=== PATIENT | male | born 1950 | race Caucasian/White ===

== ENCOUNTER 2019-06-18 11:55 | Emergency (ER) | payer OTHER ==
[~2019-06-18] VITALS: Ht 175.3 cm; Wt 65.8 kg
[2019-06-18 12:22] VITALS: BP_SYST 136
[2019-06-18 13:22] LABS: CALCIUM 8.3 mg/dL (8.4-11.0); CREATININE 0.86 mg/dL (0.55-1.30); POTASSIUM 3.1 mmol/L (3.5-5.1)
[2019-06-18 13:27] LABS: ALBUMIN 3.3 g/dL (3.4-4.8); TOTAL BILIRUBIN 0.6 mg/dL (0.0-1.0)
[2019-06-18 13:58] VITALS: BP_SYST 136
== END 2019-06-18 13:58 | disposition home or self-care (01) ==
LOC: SED 13:00
DX: R60.0 Localized edema (principal); I11.0 Hypertensive heart disease with heart failure; I50.9 Heart failure, unspecified; E11.9 Type 2 diabetes mellitus without complications; K64.9 Unspecified hemorrhoids
CPT/HCPCS: 36415; 80053; 81002; 83880; 93971; 99284; 99285

== ENCOUNTER 2020-09-08 12:55 | Inpatient (IN) | payer OTHER, SELFPAY ==
[~2020-09-08] VITALS: Ht 175.3 cm; Wt 65.9 kg
[2020-09-08 13:04] VITALS: BP_SYST 121
[2020-09-08 13:42] LABS: BASOPHILS % (AUTO) 0.4 % (0.0-2.0); EOSINOPHILS # (AUTO) 0.1 K/uL (0.0-0.4); EOSINOPHILS % (AUTO) 1.5 % (0.0-4.0); HEMATOCRIT 32.1 % (36-54); HEMOGLOBIN 10.8 g/dL (14.0-18.0); LYMPHOCYTES # (AUTO) 2.1 K/uL (1.0-5.5); LYMPHOCYTES % (AUTO) 25.3 % (20.5-51.5); MEAN CORPUSCULAR HEMOGLOBIN 32 pg (27-31); MEAN CORPUSCULAR HGB CONC 34 % (32-36); MEAN CORPUSCULAR VOLUME 94 fL (79.0-98.0); MONOCYTES # (AUTO) 0.6 K/uL (0.0-1.0); MONOCYTES % (AUTO) 7.1 % (1.7-9.3); NEUTROPHILS # (AUTO) 5.5 K/uL (1.8-7.7); NEUTROPHILS % (AUTO) 65.7 % (40.0-70.0); PLATELET COUNT (AUTO) 107 K/uL (130-430); RED BLOOD CELL COUNT(AUTO) 3.42 MIL/uL (4.2-6.2); RED CELL DISTRIBUTION WIDTH 13.1 % (9.0-15.0); WHITE BLOOD COUNT (AUTO) 8.4 K/uL (4.8-10.8)
[2020-09-08 13:57] LABS: ANION GAP 6 (5-15); CHLORIDE 105 mmol/L (98-107); CREATININE 2.24 mg/dL (0.55-1.30); GLUCOSE 217 mg/dL (70-99); SODIUM SERUM 135 mmol/L (136-145); UREA NITROGEN, BLOOD 38 mg/dL (8-21)
[2020-09-08 14:02] LABS: POTASSIUM 7.7 mmol/L (3.5-5.1)
[2020-09-08 14:13] LABS: ALANINE AMINOTRANSFERASE 14 U/L (12-78); ALBUMIN 3.2 g/dL (3.4-4.8); ASPARTATE AMINOTRANSFERASE 13 U/L (10-37); LIPASE 192 U/L (73-393); THYROID STIMULATING HORMONE 0.76 uIu/mL (0.36-3.74); TOTAL BILIRUBIN 0.3 mg/dL (0.0-1.0)
[2020-09-08] MEDS ORDERED: NACL 0.9% 1,000 ML IV ONE (14:15)
[2020-09-08] MEDS ORDERED: INSULIN REGULAR, HUMAN 10 UNITS/0.1 ML INJ IVP ONE (14:15)
[2020-09-08] MEDS ORDERED: DEXTROSE 50% JECT 50 ML DISP.SYRIN IVP ONE (14:15)
[2020-09-08 14:50] LABS: ANION GAP 6 (5-15); CALCIUM 9.4 mg/dL (8.4-11.0); CHLORIDE 108 mmol/L (98-107); SODIUM SERUM 138 mmol/L (136-145); UREA NITROGEN, BLOOD 39 mg/dL (8-21)
[2020-09-08] MEDS ORDERED: SODIUM POLYSTYRENE SULFONATE 15 GM/60 ML UDBTL PO ONE (15:00)
[2020-09-08 15:04] LABS: GLUCOSE 184 mg/dL (70-99); POTASSIUM 6.3 mmol/L (3.5-5.1)
[2020-09-08 16:40] LABS: BILIRUBIN,URINE NEGATIVE (NEGATIVE); BLOOD, URINE NEGATIVE (NEGATIVE); CLARITY/URINE CLEAR (CLEAR); COLOR,URINE YELLOW (YELLOW); GLUCOSE,URINE NEGATIVE (NEGATIVE); KETONES,URINE NEGATIVE (NEGATIVE); LEUKOCYTE ESTERASE ,URINE NEGATIVE (NEGATIVE); NITRITE, URINE NEGATIVE (NEGATIVE); PROTEIN URINE NEGATIVE (NEGATIVE); UROBILINOGEN,URINE 0.2 (0.2-1.0)
[2020-09-08 17:24] VITALS: BP_SYST 116
[2020-09-08 18:36] LABS: ANION GAP 5 (5-15); CALCIUM 9.1 mg/dL (8.4-11.0); CHLORIDE 110 mmol/L (98-107); CREATININE 1.97 mg/dL (0.55-1.30); GLUCOSE 74 mg/dL (70-99); POTASSIUM 5.6 mmol/L (3.5-5.1); SODIUM SERUM 140 mmol/L (136-145); UREA NITROGEN, BLOOD 37 mg/dL (8-21)
[2020-09-08] MEDS ORDERED: SODIUM POLYSTYRENE SULFONATE 15 GM/60 ML UDBTL GT ONE (19:00)
[2020-09-08] MEDS ORDERED: METF1000 PO (19:47)
[2020-09-08] MEDS ORDERED: OMEP20CA15 PO (19:47)
[2020-09-08] MEDS ORDERED: GLIM4TAB PO (19:47)
[2020-09-08] MEDS ORDERED: MAGN400T10 PO (19:47)
[2020-09-08] MEDS ORDERED: FINA5TAB3 PO (19:47)
[2020-09-08] MEDS ORDERED: DONE10TA44 PO (19:47)
[2020-09-08] MEDS ORDERED: INSU100I24 SQ (19:47)
[2020-09-08] MEDS ORDERED: SPIR100T5 PO (19:47)
[2020-09-08] MEDS ORDERED: LISI20TA30 PO (19:47)
[2020-09-08] MEDS ORDERED: MEMA5TAB PO (19:47)
[2020-09-08] MEDS ORDERED: FURO-150 PO (19:47)
[2020-09-08] MEDS ORDERED: CYAN100T44 PO (19:47)
[2020-09-08] MEDS ORDERED: AMLO5TAB92 PO (19:47)
[2020-09-08] MEDS ORDERED: CARV25TA55 PO (19:47)
[2020-09-08] MEDS ORDERED: LIP10 PO (19:47)
[2020-09-08] MEDS ORDERED: TAMS-11 PO (19:47)
[2020-09-08 20:00] VITALS: BP_SYST 119
[2020-09-08] MEDS ORDERED: CARVEDILOL 3.125 MG TABLET (COREG) ONE (20:04)
[2020-09-09 00:10] VITALS: BP_SYST 111
[2020-09-09 08:00] VITALS: BP_SYST 147
[2020-09-09] MEDS ORDERED: D5W 1,000 ML IV PRN (09:00)
[2020-09-09] MEDS ORDERED: GLUCOSE (DEXTROSE) ORAL GEL -Adults PO PRN (09:00)
[2020-09-09] MEDS ORDERED: DEXTROSE 50% JECT 50 ML DISP.SYRIN IVP PRN (09:00)
[2020-09-09] MEDS: FINASTERIDE 5 MG TABLET (PROSCAR) PO SCH (09:17)
[2020-09-09] MEDS: TAMSULOSIN HCL 0.4 MG CAP PO SCH (09:17)
[2020-09-09] MEDS: ATORVASTATIN 10 MG TABLET PO SCH (09:17)
[2020-09-09] MEDS: CARVEDILOL 25 MG TABLET (COREG) PO SCH ×2 (09:17→20:04)
[2020-09-09] MEDS: NACL 0.9% 1,000 ML IV SCH ×2 (09:17→21:05)
[2020-09-09] MEDS: MEMANTINE HCL 5 MG TABLET PO SCH ×2 (09:18→21:04)
[2020-09-09] MEDS: amLODIPine BESYLATE 5 MG TABLET PO SCH (09:18)
[2020-09-09] MEDS: INSULIN REGULAR, HUMAN 100 UNITS/ML, 10 ML VIAL (humuLIN R) SUBCUT PRN ×3 (11:27→20:08)
[2020-09-09 11:37] LABS: ANION GAP 5 (5-15); CHLORIDE 109 mmol/L (98-107); CREATININE 1.81 mg/dL (0.55-1.30); GLUCOSE 194 mg/dL (70-99); POTASSIUM 5.9 mmol/L (3.5-5.1); SODIUM SERUM 139 mmol/L (136-145); UREA NITROGEN, BLOOD 30 mg/dL (8-21)
[2020-09-09 12:03] VITALS: BP_SYST 107
[2020-09-09] MEDS ORDERED: SODIUM POLYSTYRENE SULFONATE 15 GM/60 ML UDBTL PO ONE (13:45)
[2020-09-09 16:06] VITALS: BP_SYST 106
[2020-09-09 20:00] VITALS: BP_SYST 119
[2020-09-09] MEDS: DONEPEZIL HCL 5 MG TABLET (ARICEPT) PO SCH (20:04)
[2020-09-09] MEDS: FAMOTIDINE 20 MG TABLET PO SCH (20:04)
[2020-09-10 00:42] VITALS: BP_SYST 104
[2020-09-10 06:07] LABS: BASOPHILS % (AUTO) 0.4 % (0.0-2.0); EOSINOPHILS # (AUTO) 0.1 K/uL (0.0-0.4); EOSINOPHILS % (AUTO) 1.7 % (0.0-4.0); HEMOGLOBIN 11.1 g/dL (14.0-18.0); LYMPHOCYTES # (AUTO) 2.1 K/uL (1.0-5.5); LYMPHOCYTES % (AUTO) 30.8 % (20.5-51.5); MEAN CORPUSCULAR HEMOGLOBIN 32 pg (27-31); MEAN CORPUSCULAR HGB CONC 34 % (32-36); MEAN CORPUSCULAR VOLUME 94 fL (79.0-98.0); MONOCYTES # (AUTO) 0.7 K/uL (0.0-1.0); MONOCYTES % (AUTO) 11.1 % (1.7-9.3); NEUTROPHILS # (AUTO) 3.7 K/uL (1.8-7.7); PLATELET COUNT (AUTO) 103 K/uL (130-430); RED BLOOD CELL COUNT(AUTO) 3.52 MIL/uL (4.2-6.2); RED CELL DISTRIBUTION WIDTH 13.3 % (9.0-15.0); WHITE BLOOD COUNT (AUTO) 6.7 K/uL (4.8-10.8)
[2020-09-10 06:18] LABS: ALANINE AMINOTRANSFERASE 23 U/L (12-78); ALBUMIN 3.1 g/dL (3.4-4.8); ANION GAP 10 (5-15); ASPARTATE AMINOTRANSFERASE 15 U/L (10-37); CALCIUM 8.6 mg/dL (8.4-11.0); CHLORIDE 114 mmol/L (98-107); CREATININE 1.38 mg/dL (0.55-1.30); GLUCOSE 79 mg/dL (70-99); POTASSIUM 4.4 mmol/L (3.5-5.1); SODIUM SERUM 147 mmol/L (136-145); TOTAL BILIRUBIN 0.4 mg/dL (0.0-1.0); UREA NITROGEN, BLOOD 20 mg/dL (8-21)
[2020-09-10 07:59] VITALS: BP_SYST 100
[2020-09-10] MEDS: amLODIPine BESYLATE 5 MG TABLET PO SCH (09:10)
[2020-09-10] MEDS: TAMSULOSIN HCL 0.4 MG CAP PO SCH (09:10)
[2020-09-10] MEDS: CARVEDILOL 25 MG TABLET (COREG) PO SCH ×2 (09:10→21:06)
[2020-09-10] MEDS: ATORVASTATIN 10 MG TABLET PO SCH (09:10)
[2020-09-10] MEDS: FINASTERIDE 5 MG TABLET (PROSCAR) PO SCH (09:10)
[2020-09-10] MEDS: MEMANTINE HCL 5 MG TABLET PO SCH ×2 (09:11→21:05)
[2020-09-10] MEDS: FAMOTIDINE 20 MG TABLET PO SCH ×2 (09:11→21:06)
[2020-09-10] MEDS: NACL 0.9% 1,000 ML IV SCH (11:17)
[2020-09-10] MEDS: INSULIN REGULAR, HUMAN 100 UNITS/ML, 10 ML VIAL (humuLIN R) SUBCUT PRN ×2 (11:25→21:12)
[2020-09-10 12:00] VITALS: BP_SYST 100
[2020-09-10 16:01] VITALS: BP_SYST 108
[2020-09-10 20:45] VITALS: BP_SYST 117
[2020-09-10] MEDS: DONEPEZIL HCL 5 MG TABLET (ARICEPT) PO SCH (21:06)
[2020-09-10 23:30] VITALS: BP_SYST 125
[2020-09-11] MEDS: NACL 0.9% 1,000 ML IV SCH ×2 (01:04→21:26)
[2020-09-11 07:50] VITALS: BP_SYST 126
[2020-09-11] MEDS ORDERED: DIATR MEGLU/DIATRIZ SOD 30 ML SOLUTION PO ONE (08:10)
[2020-09-11 08:12] VITALS: BP_SYST 134
[2020-09-11] MEDS: CARVEDILOL 25 MG TABLET (COREG) PO SCH ×2 (08:51→21:00)
[2020-09-11] MEDS: FAMOTIDINE 20 MG TABLET PO SCH ×2 (08:51→21:26)
[2020-09-11] MEDS: FINASTERIDE 5 MG TABLET (PROSCAR) PO SCH (08:51)
[2020-09-11] MEDS: ATORVASTATIN 10 MG TABLET PO SCH (08:51)
[2020-09-11] MEDS: TAMSULOSIN HCL 0.4 MG CAP PO SCH (08:51)
[2020-09-11] MEDS: amLODIPine BESYLATE 5 MG TABLET PO SCH (08:52)
[2020-09-11] MEDS: MEMANTINE HCL 5 MG TABLET PO SCH ×2 (10:51→21:26)
[2020-09-11 12:23] VITALS: BP_SYST 118
[2020-09-11] MEDS: INSULIN REGULAR, HUMAN 100 UNITS/ML, 10 ML VIAL (humuLIN R) SUBCUT PRN ×2 (12:46→21:25)
[2020-09-11] MEDS ORDERED: LEVOFLOXACIN IN DEXTROSE 5 % 100 ML IV SCH (15:30)
[2020-09-11 16:31] VITALS: BP_SYST 117
[2020-09-11] MEDS: metroNIDAZOLE 500 mg/NS 100 ML IV SCH (16:43)
[2020-09-11] MEDS ORDERED: LEVOFLOXACIN IN DEXTROSE 5 % 100 ML IV ONE (17:00)
[2020-09-11 20:00] VITALS: BP_SYST 115
[2020-09-11] MEDS: DONEPEZIL HCL 5 MG TABLET (ARICEPT) PO SCH (21:26)
[2020-09-12 02:03] VITALS: BP_SYST 129
[2020-09-12] MEDS: NACL 0.9% 1,000 ML IV SCH (03:40)
[2020-09-12] MEDS: metroNIDAZOLE 500 mg/NS 100 ML IV SCH (04:35)
[2020-09-12 05:49] LABS: BASOPHILS % (AUTO) 0.3 % (0.0-2.0); EOSINOPHILS # (AUTO) 0.1 K/uL (0.0-0.4); EOSINOPHILS % (AUTO) 1.2 % (0.0-4.0); HEMATOCRIT 29.8 % (36-54); HEMOGLOBIN 10.1 g/dL (14.0-18.0); LYMPHOCYTES # (AUTO) 1.6 K/uL (1.0-5.5); LYMPHOCYTES % (AUTO) 23.5 % (20.5-51.5); MEAN CORPUSCULAR HEMOGLOBIN 32 pg (27-31); MEAN CORPUSCULAR HGB CONC 34 % (32-36); MEAN CORPUSCULAR VOLUME 94 fL (79.0-98.0); MONOCYTES # (AUTO) 0.6 K/uL (0.0-1.0); MONOCYTES % (AUTO) 8.9 % (1.7-9.3); NEUTROPHILS # (AUTO) 4.6 K/uL (1.8-7.7); NEUTROPHILS % (AUTO) 66.1 % (40.0-70.0); PLATELET COUNT (AUTO) 95 K/uL (130-430); RED BLOOD CELL COUNT(AUTO) 3.17 MIL/uL (4.2-6.2); RED CELL DISTRIBUTION WIDTH 13.3 % (9.0-15.0); WHITE BLOOD COUNT (AUTO) 6.9 K/uL (4.8-10.8)
[2020-09-12 06:05] LABS: ALANINE AMINOTRANSFERASE 27 U/L (12-78); ALBUMIN 2.8 g/dL (3.4-4.8); ANION GAP 10 (5-15); ASPARTATE AMINOTRANSFERASE 16 U/L (10-37); CALCIUM 8.2 mg/dL (8.4-11.0); CHLORIDE 110 mmol/L (98-107); CREATININE 1.32 mg/dL (0.55-1.30); GLUCOSE 136 mg/dL (70-99); POTASSIUM 4.9 mmol/L (3.5-5.1); SODIUM SERUM 142 mmol/L (136-145); TOTAL BILIRUBIN 0.4 mg/dL (0.0-1.0); UREA NITROGEN, BLOOD 19 mg/dL (8-21)
[2020-09-12 08:00] VITALS: BP_SYST 146
[2020-09-12] MEDS: TAMSULOSIN HCL 0.4 MG CAP PO SCH (09:09)
[2020-09-12] MEDS: ATORVASTATIN 10 MG TABLET PO SCH (09:10)
[2020-09-12] MEDS: MEMANTINE HCL 5 MG TABLET PO SCH (09:10)
[2020-09-12] MEDS: amLODIPine BESYLATE 5 MG TABLET PO SCH (09:11)
[2020-09-12] MEDS: FINASTERIDE 5 MG TABLET (PROSCAR) PO SCH (09:11)
[2020-09-12] MEDS: CARVEDILOL 25 MG TABLET (COREG) PO SCH (09:11)
[2020-09-12] MEDS: FAMOTIDINE 20 MG TABLET PO SCH (09:11)
[2020-09-12] MEDS ORDERED: LEVO500T89 PO (10:26)
[2020-09-12] MEDS ORDERED: METR500T PO (10:26)
[2020-09-12 10:39] VITALS: BP_SYST 146
[2020-09-12 12:00] VITALS: BP_SYST 127
[2020-09-12] MEDS ORDERED: LEVOFLOXACIN 250 MG/D5W 250 ML IV SCH (17:00)
== END 2020-09-12 12:00 | disposition home or self-care (01) | DRG 391 ==
LOC: SED 12:55 → STU 15:36
PROVIDERS: ADMIT Internal Medicine Hospice and Palliative Medicine; ATTEND Internal Medicine Hospice and Palliative Medicine
DX: K52.9 Noninfective gastroenteritis and colitis, unspecified (principal); N17.0 Acute kidney failure with tubular necrosis; R63.0 Anorexia; I11.0 Hypertensive heart disease with heart failure; D64.9 Anemia, unspecified; I50.9 Heart failure, unspecified; F03.90 Unspecified dementia, unspecified severity, without behavioral disturbance, psychotic disturbance, mood disturbance, and anxiety; E61.1 Iron deficiency; E87.5 Hyperkalemia; N40.0 Benign prostatic hyperplasia without lower urinary tract symptoms; Z20.822 Contact with and (suspected) exposure to COVID-19; K21.9 Gastro-esophageal reflux disease without esophagitis; E11.9 Type 2 diabetes mellitus without complications; Z79.899 Other long term (current) drug therapy; Z68.21 Body mass index [BMI] 21.0-21.9, adult; Z86.73 Personal history of transient ischemic attack (TIA), and cerebral infarction without residual deficits; Z89.512 Acquired absence of left leg below knee
CPT/HCPCS: 36415; 71045; 76376; 76700-TC; 76770; 80048; 80053; 81003; 82962; 83690; 83735; 84443; 84484; 85025; 87045-TC; 87046; 93005; 96374; 96375; 99291; G0378; J1815; J1956; J3490; J7030; Q9964

== ENCOUNTER 2023-06-03 08:59 | Emergency (ER) | payer OTHER, MEDICAID ==
[~2023-06-03] VITALS: Ht 170.2 cm; Wt 63.5 kg
[~2023-06-03 08:59] MED LIST: AMLO5TAB92 PO; CARV25TA55 PO; CYAN100T44 PO; DONE10TA44 PO; FINA-37 PO; FURO-150 PO; GLIM4TAB PO; INSU100I24 SQ; LEVO-62 PO; LIP10 PO; MAGN400T10 PO; MEMA5TAB PO; METF1000 PO; METR500T PO; OMEP20CA15 PO; TAMS-11 PO
[2023-06-03 09:20] VITALS: BP_SYST 117; PULSE 67; RESP 18; TEMP 97.8; O2SAT 96
[2023-06-03 09:47] LABS: BASOPHILS % (AUTO) 0.6 % (0.0-2.0); EOSINOPHILS # (AUTO) 0.2 K/uL (0.0-0.4); HEMATOCRIT 36.5 % (36-54); HEMOGLOBIN 12.5 g/dL (14.0-18.0); LYMPHOCYTES # (AUTO) 1.5 K/uL (1.0-5.5); LYMPHOCYTES % (AUTO) 18.6 % (20.5-51.5); MEAN CORPUSCULAR HEMOGLOBIN 29 pg (27-31); MEAN CORPUSCULAR HGB CONC 34 % (32-36); MEAN CORPUSCULAR VOLUME 86 fL (79.0-98.0); MONOCYTES # (AUTO) 0.7 K/uL (0.0-1.0); MONOCYTES % (AUTO) 9.1 % (1.7-9.3); NEUTROPHILS # (AUTO) 5.5 K/uL (1.8-7.7); NEUTROPHILS % (AUTO) 69.7 % (40.0-70.0); PLATELET COUNT (AUTO) 172 K/uL (130-430); RED BLOOD CELL COUNT(AUTO) 4.26 MIL/uL (4.2-6.2); RED CELL DISTRIBUTION WIDTH 16.6 % (9.0-15.0); WHITE BLOOD COUNT (AUTO) 7.9 K/uL (4.8-10.8)
[2023-06-03 09:54] LABS: ANION GAP 11 (5-15); CALCIUM 9.3 mg/dL (8.4-11.0); CARBON DIOXIDE 27 mmol/L (23-29); CHLORIDE 103 mmol/L (98-107); CREATININE 1.72 mg/dL (0.55-1.30); GLUCOSE 169 mg/dL (74-106); SODIUM SERUM 141 mmol/L (136-145); UREA NITROGEN, BLOOD 21 mg/dL (8-21)
[2023-06-03] MEDS ORDERED: ACET1TAB93 PO (12:15)
[2023-06-03 12:36] VITALS: BP_SYST 123; PULSE 81; RESP 18; TEMP 97.9; O2SAT 96
== END 2023-06-03 12:32 | disposition home or self-care (01) ==
LOC: SED 08:59
DX: S20.212A Contusion of left front wall of thorax, initial encounter (principal); S30.1XXA Contusion of abdominal wall, initial encounter; E11.9 Type 2 diabetes mellitus without complications; I10 Essential (primary) hypertension; Z79.899 Other long term (current) drug therapy; V89.2XXA Person injured in unspecified motor-vehicle accident, traffic, initial encounter; Y93.89 Activity, other specified; Y92.89 Other specified places as the place of occurrence of the external cause; Y99.8 Other external cause status
CPT/HCPCS: 36415; 71250-TC; 76376; 80048; 85025; 99284